=== PATIENT | female | born 1990 | race Caucasian/White ===

== ENCOUNTER 2017-04-15 20:59 | Emergency (ER) | payer MEDICAID, OTHER ==
[~2017-04-15] VITALS: Ht 165.1 cm; Wt 80.0 kg
[2017-04-16] MEDS ORDERED: ONDANSETRON 4MG ODT PO STA (01:30)
[2017-04-16] MEDS ORDERED: ACETAMINOPHEN 325MG TABLET PO STA (01:30)
[2017-04-16 01:51] LABS: CLARITY URINE CLEAR (CLEAR); COLOR URINE YELLOW (YELLOW); GLUCOSE URINE NEGATIVE (NEGATIVE); KETONES URINE NEGATIVE (NEGATIVE); LEUKOCYTE ESTERASE URINE NEGATIVE (NEGATIVE); NITRITE URINE NEGATIVE (NEGATIVE); OCCULT BLOOD URINE NEGATIVE (NEGATIVE); PH URINE 5.5 (4.5-8.0); PROTEIN URINE NEGATIVE (NEGATIVE)
[2017-04-16 01:58] LABS: BASOPHILS % 0.4 % (0.0-2.0); EOSINOPHILS % 1.2 % (0.0-5.0); HEMATOCRIT. 34.5 % (36.0-48.0); HEMOGLOBIN. 11.2 g/dL (12.0-16.0); LYMPHOCYTES % 43.3 % (20.0-50.0); MEAN CORPUSCULAR HEMOGLOBIN 25.7 pg (28.0-32.0); MEAN CORPUSCULAR VOLUME 79.5 fL (81.0-99.0); MEAN PLATELET VOLUME 9.8 fl (7.4-10.4); NEUTROPHILS % 48.1 % (40.0-76.0); PLATELET 190 x1000/uL (130-400); RED BLOOD CELL COUNT 4.34 mill/uL (4.2-5.4); RED CELL DISTRIBUTION WIDTH 14.8 % (11.6-14.6)
[2017-04-16 02:04] LABS: INR 1.1; PROTHROMBIN TIME 10.9 sec
[2017-04-16 02:05] VITALS: BP 128/61
[2017-04-16 02:10] LABS: *BARBITURATES SCREEN URINE NEGATIVE (NEGATIVE); *BENZODIAZEPINES SCREEN URINE NEGATIVE (NEGATIVE); *COCAINE SCREEN URINE NEGATIVE (NEGATIVE); CANNABINOID URINE SCREEN NEGATIVE (NEGATIVE); METHADONE URINE SCREEN NEGATIVE (NEGATIVE); OPIATES URINE SCREEN NEGATIVE (NEGATIVE); PHENCYCLIDINE URINE SCREEN NEGATIVE (NEGATIVE)
[2017-04-16 02:11] LABS: CARBON DIOXIDE 28 mEq/L (21-32); CHLORIDE 109 mEq/L (98-107)
[2017-04-16 02:30] LABS: *AMPHETAMINES SCREEN URINE NEGATIVE (NEGATIVE)
== END 2017-04-16 03:15 | disposition home or self-care (01) ==
LOC: ER 04-16 01:44
DX: R51 Headache (principal); R42 Dizziness and giddiness; H53.8 Other visual disturbances; R11.0 Nausea
CPT/HCPCS: 36415; 71010; 80053; 80305; 81003; 81025; 83690; 85025; 85610; 93005; 99285; Q0162

== ENCOUNTER 2017-08-06 10:57 | Emergency (ER) | payer OTHER ==
[2017-08-06] MEDS ORDERED: KETOROLAC 30MG/ML VIAL IM STA (11:52)
[2017-08-06] MEDS ORDERED: VISCOUS LIDOCAINE 2% 15 ML UDC PO STA (11:52)
[2017-08-06] MEDS ORDERED: DICYCLOMINE 10 MG/5 ML ORAL SYR PO STA (11:52)
[2017-08-06] MEDS ORDERED: MAGNESIUM/ALUMINUM HYDROXIDE/SIMETHICONE 30ML UDC PO STA (11:52)
[2017-08-06] MEDS ORDERED: ONDANSETRON 4MG ODT PO STA (11:52)
[2017-08-06 12:46] LABS: CARBON DIOXIDE 25 mEq/L (21-32); CHLORIDE 107 mEq/L (98-107)
[2017-08-06 12:53] LABS: BASOPHILS % 0.3 % (0.0-2.0); HEMOGLOBIN. 11.1 g/dL (12.0-16.0); LYMPHOCYTES % 27.1 % (20.0-50.0); MEAN CORPUSCULAR HEMOGLOBIN 25.8 pg (28.0-32.0); MEAN CORPUSCULAR VOLUME 79.2 fL (81.0-99.0); MEAN PLATELET VOLUME 10.1 fl (7.4-10.4); MONOCYTES % 6.6 % (2.0-8.0); PLATELET 180 x1000/uL (130-400); RED CELL DISTRIBUTION WIDTH 15.2 % (11.6-14.6)
[2017-08-06 13:30] VITALS: BP 122/65
[2017-08-06 13:32] LABS: GLUCOSE URINE NEGATIVE (NEGATIVE); KETONES URINE NEGATIVE (NEGATIVE); LEUKOCYTE ESTERASE URINE NEGATIVE (NEGATIVE); NITRITE URINE NEGATIVE (NEGATIVE); OCCULT BLOOD URINE NEGATIVE (NEGATIVE); PH URINE 6.5 (4.5-8.0); PROTEIN URINE NEGATIVE (NEGATIVE); SPECIFIC GRAVITY URINE 1.025 (1.005-1.030); UROBILINOGEN URINE 0.2 E.U./dL (0.2-1.0)
[2017-08-06 13:34] LABS: CLARITY URINE CLEAR (CLEAR); COLOR URINE YELLOW (YELLOW)
== END 2017-08-06 14:10 | disposition home or self-care (01) ==
LOC: ER 10:57
DX: D50.9 Iron deficiency anemia, unspecified (principal); R10.12 Left upper quadrant pain; R11.0 Nausea
CPT/HCPCS: 36415; 80053; 81003; 81025; 83690; 85025; 96372; 99284; J1885; Q0162

== ENCOUNTER 2017-08-06 22:34 | Emergency (ER) | payer OTHER ==
[~2017-08-06] VITALS: Ht 165.1 cm; Wt 78.0 kg
[2017-08-07] MEDS ORDERED: FAMOTIDINE 20MG/2ML VIAL IV STA (00:40)
[2017-08-07] MEDS ORDERED: MORPHINE SULFATE 4 MG/ML CPJ (NOT FOR IM USE) IV STA (00:40)
[2017-08-07] MEDS ORDERED: SODIUM CHLORIDE 0.9% 1,000 ML IV ONE (00:40)
[2017-08-07] MEDS ORDERED: ONDANSETRON HCL 4MG/2ML VIAL IV STA (00:40)
[2017-08-07 01:14] LABS: BASOPHILS % 0.4 % (0.0-2.0); EOSINOPHILS % 1.1 % (0.0-5.0); HEMATOCRIT. 35.1 % (36.0-48.0); HEMOGLOBIN. 11.6 g/dL (12.0-16.0); LYMPHOCYTES % 26.9 % (20.0-50.0); MEAN CORPUSCULAR HEMOGLOBIN 26.5 pg (28.0-32.0); MEAN CORPUSCULAR VOLUME 79.7 fL (81.0-99.0); MEAN PLATELET VOLUME 10.2 fl (7.4-10.4); NEUTROPHILS % 64.6 % (40.0-76.0); PLATELET 192 x1000/uL (130-400); RED CELL DISTRIBUTION WIDTH 15.1 % (11.6-14.6)
[2017-08-07] MEDS ORDERED: MORPHINE SULFATE 10 MG/ML CPJ IV NR (01:15)
[2017-08-07 01:22] LABS: HCG SCREEN NEGATIVE; PROTHROMBIN TIME 10.7 sec (9.4-11.6)
[2017-08-07 01:24] LABS: CHLORIDE 109 mEq/L (98-107)
[2017-08-07 01:34] LABS: CARBON DIOXIDE 27 mEq/L (21-32); ETHANOL BLOOD < 10 mg/dL
[2017-08-07 01:52] LABS: COLOR URINE YELLOW (YELLOW); GLUCOSE URINE NEGATIVE (NEGATIVE); KETONES URINE TRACE (NEGATIVE); LEUKOCYTE ESTERASE URINE 1+ (NEGATIVE); NITRITE URINE NEGATIVE (NEGATIVE); OCCULT BLOOD URINE NEGATIVE (NEGATIVE); PROTEIN URINE NEGATIVE (NEGATIVE); SPECIFIC GRAVITY URINE 1.031 (1.005-1.030)
[2017-08-07 02:01] LABS: *AMPHETAMINES SCREEN URINE NEGATIVE (NEGATIVE); *BARBITURATES SCREEN URINE NEGATIVE (NEGATIVE); *BENZODIAZEPINES SCREEN URINE NEGATIVE (NEGATIVE); *COCAINE SCREEN URINE NEGATIVE (NEGATIVE); CANNABINOID URINE SCREEN NEGATIVE (NEGATIVE); METHADONE URINE SCREEN NEGATIVE (NEGATIVE); OPIATES URINE SCREEN NEGATIVE (NEGATIVE); PHENCYCLIDINE URINE SCREEN NEGATIVE (NEGATIVE)
[2017-08-07 02:09] LABS: CLARITY URINE SL HAZY (CLEAR)
[2017-08-07] MEDS ORDERED: CEFTRIAXONE 1 G PREMIX 50 ML IV NR (02:45)
[2017-08-07] MEDS ORDERED: DICYCLOMINE HCL 10MG CAPSULE PO ONE (03:45)
[2017-08-07 04:18] VITALS: BP 115/70
== END 2017-08-07 04:15 | disposition home or self-care (01) ==
LOC: ER 23:58
DX: N39.0 Urinary tract infection, site not specified (principal)
CPT/HCPCS: 36415; 74176; 80053; 80305; 81001; 83605; 83690; 84703; 85025; 85610; 96361; 96365; 96375; 99285; G0482; J0696; J2270; J2405; J3490; J7030; Z7610

== ENCOUNTER 2018-02-07 09:51 | Observation (INO) | payer OTHER ==
[~2018-02-07] VITALS: Ht 165.1 cm; Wt 79.8 kg
[2018-02-07] MEDS ORDERED: PNV1TABL76 PO (10:07)
[2018-02-07] MEDS ORDERED: CHOL100046 PO (10:07)
[2018-02-07 11:07] LABS: CLARITY URINE CLOUDY (CLEAR); COLOR URINE YELLOW (YELLOW); KETONES URINE NEGATIVE (NEGATIVE); LEUKOCYTE ESTERASE URINE 1+ (NEGATIVE); NITRITE URINE NEGATIVE (NEGATIVE); OCCULT BLOOD URINE 2+ (NEGATIVE); PH URINE 6.5 (4.5-8.0); PROTEIN URINE NEGATIVE (NEGATIVE); SPECIFIC GRAVITY URINE 1.027 (1.005-1.030)
[2018-02-07] MEDS ORDERED: CEFAZOLIN 2,000 MG in DEXT 5% WATER 100 ML IV SCH (12:00)
[2018-02-07] MEDS ORDERED: LACTATED RINGERS 1,000 ML IV SCH (12:00)
== END 2018-02-07 14:55 | disposition home or self-care (01) ==
LOC: L&D 09:51
PROVIDERS: ADMIT Obstetrics & Gynecology; ATTEND Obstetrics & Gynecology
DX: O26.893 Other specified pregnancy related conditions, third trimester (principal); R10.30 Lower abdominal pain, unspecified; M54.5 Low back pain; O26.853 Spotting complicating pregnancy, third trimester; Z3A.29 29 weeks gestation of pregnancy
CPT/HCPCS: 76805; 76818; 81003; 96365; 99281; G0378; J0690; J7120; 96360; 96361; J7060

== ENCOUNTER 2018-03-02 10:43 | Observation (INO) | payer OTHER ==
[~2018-03-02 10:43] MED LIST: CHOL100046 PO; PNV1TABL76 PO
[2018-03-02 12:20] LABS: CLARITY URINE CLEAR (CLEAR); COLOR URINE YELLOW (YELLOW); KETONES URINE TRACE (NEGATIVE); LEUKOCYTE ESTERASE URINE NEGATIVE (NEGATIVE); NITRITE URINE NEGATIVE (NEGATIVE); OCCULT BLOOD URINE NEGATIVE (NEGATIVE); PH URINE 6.5 (4.5-8.0); PROTEIN URINE NEGATIVE (NEGATIVE); SPECIFIC GRAVITY URINE 1.026 (1.005-1.030)
== END 2018-03-02 13:00 | disposition home or self-care (01) ==
LOC: L&D 10:43
PROVIDERS: ADMIT Obstetrics & Gynecology; ATTEND Obstetrics & Gynecology
DX: O26.893 Other specified pregnancy related conditions, third trimester (principal); R10.30 Lower abdominal pain, unspecified; M54.5 Low back pain; N89.8 Other specified noninflammatory disorders of vagina; Z3A.33 33 weeks gestation of pregnancy
CPT/HCPCS: 81003; 99281; G0378

== ENCOUNTER 2018-11-11 19:42 | Emergency (ER) | payer OTHER ==
[~2018-11-11] VITALS: Ht 165.1 cm; Wt 78.0 kg
[2018-11-11 21:22] LABS: CLARITY URINE CLEAR (CLEAR); COLOR URINE YELLOW (YELLOW); KETONES URINE TRACE (NEGATIVE); LEUKOCYTE ESTERASE URINE NEGATIVE (NEGATIVE); NITRITE URINE NEGATIVE (NEGATIVE); OCCULT BLOOD URINE NEGATIVE (NEGATIVE); PH URINE 5.5 (4.5-8.0); PROTEIN URINE NEGATIVE (NEGATIVE); SPECIFIC GRAVITY URINE 1.039 (1.005-1.030)
[2018-11-12 01:41] LABS: BASOPHILS % 0.1 % (0.0-2.0); EOSINOPHILS % 0.9 % (0.0-5.0); HEMATOCRIT. 34.3 % (36.0-48.0); HEMOGLOBIN. 11.2 g/dL (12.0-16.0); LYMPHOCYTES % 30.1 % (20.0-50.0); MEAN CORPUSCULAR HEMOGLOBIN 25.7 pg (28.0-32.0); MEAN CORPUSCULAR VOLUME 78.8 fL (81.0-99.0); MEAN PLATELET VOLUME 10.3 fl (7.4-10.4); MONOCYTES % 7.4 % (2.0-8.0); NEUTROPHILS % 61.5 % (40.0-76.0); PLATELET 215 x1000/uL (130-400); RED BLOOD CELL COUNT 4.35 mill/uL (4.2-5.4); RED CELL DISTRIBUTION WIDTH 16.5 % (11.6-14.6)
[2018-11-12 01:45] LABS: CHLORIDE 104 mEq/L (98-107)
[2018-11-12 02:15] LABS: B-HCG QUANTITATIVE 101303 mIU/mL (<3)
[2018-11-12 06:11] VITALS: BP 98/64
== END 2018-11-12 06:17 | disposition home or self-care (01) ==
LOC: ER 19:42
DX: O26.891 Other specified pregnancy related conditions, first trimester (principal); R00.2 Palpitations; R20.2 Paresthesia of skin; Z3A.08 8 weeks gestation of pregnancy
CPT/HCPCS: 36415; 76830; 76856; 80053; 81003; 81025; 84484; 84702; 85025; 87081; 87210; 93005; 99284; Z7610

== ENCOUNTER 2019-12-20 11:17 | Emergency (ER) | payer OTHER ==
[~2019-12-20] VITALS: Ht 165.1 cm; Wt 78.0 kg
[2019-12-20] MEDS ORDERED: IBUPROFEN 600MG TABLET PO STA (12:10)
[2019-12-20] MEDS ORDERED: LORAZEPAM 0.5MG TABLET PO ONE ×2 (12:15→13:00)
[2019-12-20] MEDS ORDERED: AMOXICILLIN 500 MG CAPSULE PO ONE (12:15)
[2019-12-20 17:59] VITALS: BP 138/94
== END 2019-12-20 17:59 | disposition home or self-care (01) ==
LOC: ER 11:17
DX: R51 Headache (principal); K08.89 Other specified disorders of teeth and supporting structures
CPT/HCPCS: 93005; 99284

== ENCOUNTER 2021-10-07 10:52 | Emergency (ER) | payer OTHER ==
[~2021-10-07] VITALS: Ht 165.1 cm; Wt 79.0 kg
[2021-10-07] MEDS ORDERED: VISCOUS LIDOCAINE 2% 15 ML UDC PO STA (11:00)
[2021-10-07] MEDS ORDERED: FAMOTIDINE 20MG/2ML VIAL IV ONE (11:00)
[2021-10-07] MEDS ORDERED: MAGNESIUM/ALUMINUM HYDROXIDE/SIMETHICONE 30ML UDC PO STA (11:00)
[2021-10-07] MEDS ORDERED: LORAZEPAM 2MG/ML CPJ IV ONE (11:15)
[2021-10-07] MEDS ORDERED: SODIUM CHLORIDE 0.9% 1,000 ML IV ONE (11:30)
[2021-10-07 11:35] VITALS: BP 105/51
[2021-10-07 12:01] LABS: BASOPHILS % 0.8 % (0.0-2.0); EOSINOPHILS % 2.3 % (0.0-5.0); HEMATOCRIT. 30.4 % (36.0-48.0); HEMOGLOBIN. 9.5 g/dL (12.0-16.0); LYMPHOCYTES % 31.8 % (20.0-50.0); MEAN CORPUSCULAR HEMOGLOBIN 21.1 pg (28.0-32.0); MEAN CORPUSCULAR VOLUME 67.7 fL (81.0-99.0); MEAN PLATELET VOLUME 10.3 fl (7.4-10.4); MONOCYTES % 7.7 % (2.0-8.0); NEUTROPHILS % 57.4 % (40.0-76.0); PLATELET 272 x1000/uL (130-400); RED BLOOD CELL COUNT 4.49 mill/uL (4.2-5.4); RED CELL DISTRIBUTION WIDTH 19.8 % (11.6-14.6)
[2021-10-07 12:05] LABS: CHLORIDE 109 mEq/L (98-107)
[2021-10-07 12:32] LABS: HCG SCREEN NEGATIVE
[2021-10-07 12:47] LABS: PLATELET ESTIMATE NORMAL
[2021-10-07] MEDS ORDERED: MAG-55 MT (12:52)
[2021-10-07] MEDS ORDERED: FAMO-135 MT (12:52)
[2021-10-07] MEDS ORDERED: IBUP-2028 MT (12:52)
[2021-10-07 13:03] LABS: CLARITY URINE CLOUDY (CLEAR); COLOR URINE YELLOW (YELLOW); KETONES URINE TRACE (NEGATIVE); LEUKOCYTE ESTERASE URINE NEGATIVE (NEGATIVE); NITRITE URINE NEGATIVE (NEGATIVE); OCCULT BLOOD URINE NEGATIVE (NEGATIVE); PH URINE 5.5 (4.5-8.0); PROTEIN URINE NEGATIVE (NEGATIVE); SPECIFIC GRAVITY URINE 1.032 (1.005-1.030); UROBILINOGEN URINE 0.2 E.U./dL (0.2-1.0)
== END 2021-10-07 12:31 | disposition home or self-care (01) ==
LOC: ER 10:52
DX: K80.50 Calculus of bile duct without cholangitis or cholecystitis without obstruction (principal); F41.9 Anxiety disorder, unspecified; Z79.899 Other long term (current) drug therapy; E86.0 Dehydration
CPT/HCPCS: 36415; 76705; 80053; 81003; 81025; 83690; 84703; 85025; 96361; 96374; 99284; J3490; J7030

== ENCOUNTER 2021-12-14 12:56 | Emergency (ER) | payer OTHER ==
[~2021-12-14] VITALS: Ht 165.1 cm; Wt 68.0 kg
[~2021-12-14 12:56] MED LIST changes: +FAMO-135 MT; +IBUP-2028 MT; +MAG-55 MT
[2021-12-14] MEDS ORDERED: IBUPROFEN 800MG TABLET PO ONE (13:45)
[2021-12-14] MEDS ORDERED: IBUP-2030 MT (14:36)
[2021-12-14] MEDS ORDERED: CYCL10TA7 MT (14:36)
[2021-12-14 14:56] VITALS: BP 126/75
== END 2021-12-14 14:57 | disposition home or self-care (01) ==
LOC: ER 12:56
DX: S09.8XXA Other specified injuries of head, initial encounter (principal); S63.592A Other specified sprain of left wrist, initial encounter; S63.591A Other specified sprain of right wrist, initial encounter; V49.49XA Driver injured in collision with other motor vehicles in traffic accident, initial encounter; Y93.89 Activity, other specified; Y92.89 Other specified places as the place of occurrence of the external cause; Y99.8 Other external cause status; F41.9 Anxiety disorder, unspecified; Z79.899 Other long term (current) drug therapy
CPT/HCPCS: 70450; 70486; 73110; 99284; J7040; Z7610

== ENCOUNTER 2022-01-05 19:46 | Emergency (ER) | payer OTHER ==
[~2022-01-05] VITALS: Ht 165.1 cm; Wt 78.0 kg
[~2022-01-05 19:46] MED LIST changes: +CYCL10TA7 MT; +IBUP-2030 MT
[2022-01-05 21:29] LABS: BASOPHILS % 0.4 % (0.0-2.0); EOSINOPHILS % 1.5 % (0.0-5.0); HEMOGLOBIN. 8.9 g/dL (12.0-16.0); LYMPHOCYTES % 31.9 % (20.0-50.0); MEAN CORPUSCULAR HEMOGLOBIN 20.9 pg (28.0-32.0); MEAN CORPUSCULAR VOLUME 65.9 fL (81.0-99.0); MONOCYTES % 7.8 % (2.0-8.0); NEUTROPHILS % 58.4 % (40.0-76.0); PLATELET 284 x1000/uL (130-400); RED BLOOD CELL COUNT 4.24 mill/uL (4.2-5.4)
[2022-01-05 21:36] LABS: HCG SCREEN NEGATIVE
[2022-01-05 21:59] LABS: PLATELET ESTIMATE NORMAL
[2022-01-05 22:00] LABS: CHLORIDE 109 mEq/L (98-107)
[2022-01-05] MEDS ORDERED: THROAT LOZENGES-BENZOCAINE/MENTH/CETYLPYRD CL LOZENGES MM PRN (22:00)
[2022-01-05] MEDS ORDERED: IBUPROFEN 600MG TABLET PO ONE (22:00)
[2022-01-05 22:15] LABS: CLARITY URINE CLOUDY (CLEAR); COLOR URINE YELLOW (YELLOW); KETONES URINE NEGATIVE (NEGATIVE); LEUKOCYTE ESTERASE URINE 2+ (NEGATIVE); NITRITE URINE NEGATIVE (NEGATIVE); OCCULT BLOOD URINE 2+ (NEGATIVE); PH URINE 6.5 (4.5-8.0); PROTEIN URINE NEGATIVE (NEGATIVE); SPECIFIC GRAVITY URINE 1.015 (1.005-1.030); UROBILINOGEN URINE 0.2 E.U./dL (0.2-1.0)
[2022-01-05 22:18] VITALS: BP 129/72
[2022-01-05] MEDS ORDERED: AMOX250S70 MT (22:24)
[2022-01-05] MEDS ORDERED: AMOXICILLIN/POTASSIUM CLAVULANATE 500/125MG TAB PO ONE (22:30)
== END 2022-01-05 22:56 | disposition home or self-care (01) ==
LOC: ER 19:46
DX: K11.20 Sialoadenitis, unspecified (principal); N39.0 Urinary tract infection, site not specified; D64.9 Anemia, unspecified; R53.1 Weakness
CPT/HCPCS: 36415; 80053; 81003; 81025; 84703; 85025; 99283

== ENCOUNTER 2022-02-20 08:54 | Emergency (ER) | payer MEDICAID, OTHER ==
[~2022-02-20] VITALS: Ht 165.1 cm; Wt 82.0 kg
[~2022-02-20 08:54] MED LIST changes: +AMOX250S70 MT
[2022-02-20 08:58] VITALS: BP 117/73
[2022-02-20 09:55] LABS: BASOPHILS % 0.3 % (0.0-2.0); EOSINOPHILS % 0.4 % (0.0-5.0); HEMATOCRIT. 28.9 % (36.0-48.0); HEMOGLOBIN. 9.1 g/dL (12.0-16.0); LYMPHOCYTES % 13.8 % (20.0-50.0); MEAN CORPUSCULAR HEMOGLOBIN 20.4 pg (28.0-32.0); MEAN CORPUSCULAR VOLUME 64.6 fL (81.0-99.0); MEAN PLATELET VOLUME 8.9 fl (7.4-10.4); MONOCYTES % 5.5 % (2.0-8.0); PLATELET 266 x1000/uL (130-400); RED BLOOD CELL COUNT 4.47 mill/uL (4.2-5.4); RED CELL DISTRIBUTION WIDTH 17.2 % (11.6-14.6)
[2022-02-20 10:00] LABS: HCG SCREEN NEGATIVE
[2022-02-20 10:01] LABS: CHLORIDE 106 mEq/L (98-107)
[2022-02-20 10:26] LABS: PLATELET ESTIMATE NORMAL
[2022-02-20] MEDS ORDERED: KETOROLAC 60MG/2ML VIAL IM ONE (10:45)
[2022-02-20] MEDS ORDERED: ACETAMINOPHEN 325MG TABLET PO ONE (10:45)
[2022-02-20] MEDS ORDERED: ONDANSETRON 4MG ODT PO ONE (12:00)
== END 2022-02-20 13:17 | disposition home or self-care (01) ==
LOC: ER 08:54
DX: B34.9 Viral infection, unspecified (principal); Z20.822 Contact with and (suspected) exposure to COVID-19; Z79.899 Other long term (current) drug therapy
CPT/HCPCS: 36415; 71045; 80053; 83880; 84484; 84703; 85025; 87426; 87804; 93005; 96372; 99285; J1885; Q0162

== ENCOUNTER 2022-05-20 14:52 | Emergency (ER) | payer MEDICAID, OTHER ==
[~2022-05-20] VITALS: Ht 165.1 cm; Wt 83.0 kg
[~2022-05-20 14:52] MED LIST changes: +CYCL10TA21 MT; -CYCL10TA7 MT
[2022-05-20 14:53] VITALS: BP 112/80
[2022-05-20 15:22] LABS: CLARITY URINE CLEAR (CLEAR); COLOR URINE YELLOW (YELLOW); KETONES URINE NEGATIVE (NEGATIVE); LEUKOCYTE ESTERASE URINE 3+ (NEGATIVE); NITRITE URINE NEGATIVE (NEGATIVE); OCCULT BLOOD URINE NEGATIVE (NEGATIVE); PH URINE 6.5 (4.5-8.0); PROTEIN URINE NEGATIVE (NEGATIVE); SPECIFIC GRAVITY URINE 1.011 (1.005-1.030); UROBILINOGEN URINE 0.2 E.U./dL (0.2-1.0)
[2022-05-20] MEDS ORDERED: ACETAMINOPHEN 325MG TABLET PO STA (16:48)
[2022-05-20] MEDS ORDERED: ONDANSETRON 4MG ODT PO STA (16:48)
[2022-05-20 17:13] LABS: BASOPHILS % 0.4 % (0.0-2.0); EOSINOPHILS % 0.9 % (0.0-5.0); HEMOGLOBIN. 9.6 g/dL (12.0-16.0); LYMPHOCYTES % 26.8 % (20.0-50.0); MEAN CORPUSCULAR HEMOGLOBIN 21.1 pg (28.0-32.0); MEAN CORPUSCULAR VOLUME 68.1 fL (81.0-99.0); MEAN PLATELET VOLUME 9.9 fl (7.4-10.4); MONOCYTES % 7.2 % (2.0-8.0); NEUTROPHILS % 64.7 % (40.0-76.0); PLATELET 252 x1000/uL (130-400); RED BLOOD CELL COUNT 4.54 mill/uL (4.2-5.4); RED CELL DISTRIBUTION WIDTH 19.6 % (11.6-14.6)
[2022-05-20 17:30] LABS: CHLORIDE 108 mEq/L (98-107)
[2022-05-20 17:36] LABS: ETHANOL BLOOD < 10 mg/dL; HCG SCREEN NEGATIVE; PROTHROMBIN TIME 10.7 sec (9.6-11.0)
[2022-05-20 18:09] LABS: PLATELET ESTIMATE NORMAL
[2022-05-20] MEDS ORDERED: ACET-2708 MT (19:11)
[2022-05-20] MEDS ORDERED: ONDA4TAB50 MT (19:11)
[2022-05-20] MEDS ORDERED: CEPH500C2 MT (19:11)
== END 2022-05-20 18:38 | disposition home or self-care (01) ==
LOC: ER 14:52
DX: N39.0 Urinary tract infection, site not specified (principal); R10.9 Unspecified abdominal pain; D64.9 Anemia, unspecified
CPT/HCPCS: 36415; 76830; 76856; 80053; 80320; 81003; 81025; 83690; 84703; 85025; 85610; 99284; Q0162; G0480

== ENCOUNTER 2022-09-17 15:02 | Emergency (ER) | payer MEDICAID, OTHER ==
[~2022-09-17] VITALS: Ht 172.7 cm; Wt 68.0 kg
[~2022-09-17 15:02] MED LIST changes: +ACET-2708 MT; +CEPH500C2 MT; +ONDA4TAB50 MT
[2022-09-17 15:04] VITALS: BP 102/50
[2022-09-17] MEDS ORDERED: LORAZEPAM 1MG TABLET PO ONE (15:15)
[2022-09-17 15:47] LABS: BASOPHILS % 0.3 % (0.0-2.0); HEMATOCRIT. 34.6 % (36.0-48.0); HEMOGLOBIN. 10.9 g/dL (12.0-16.0); LYMPHOCYTES % 35.4 % (20.0-50.0); MEAN CORPUSCULAR HEMOGLOBIN 21.7 pg (28.0-32.0); MEAN CORPUSCULAR VOLUME 68.8 fL (81.0-99.0); MEAN PLATELET VOLUME 10.2 fl (7.4-10.4); MONOCYTES % 7.2 % (2.0-8.0); NEUTROPHILS % 56.1 % (40.0-76.0); PLATELET 270 x1000/uL (130-400); RED BLOOD CELL COUNT 5.03 mill/uL (4.2-5.4); RED CELL DISTRIBUTION WIDTH 19.3 % (11.6-14.6)
[2022-09-17 16:12] LABS: CHLORIDE 107 mEq/L (98-107)
[2022-09-17 16:13] LABS: PLATELET ESTIMATE NORMAL
[2022-09-17] MEDS ORDERED: POTASSIUM CHLORIDE 20MEQ TABLET SR PO NR (16:45)
== END 2022-09-17 19:23 | disposition home or self-care (01) ==
LOC: ER 15:18
DX: F41.9 Anxiety disorder, unspecified (principal); F41.0 Panic disorder [episodic paroxysmal anxiety]; E87.6 Hypokalemia; D64.9 Anemia, unspecified
CPT/HCPCS: 36415; 71045; 80053; 83880; 84484; 85025; 93005; 99285

== ENCOUNTER 2022-12-22 20:55 | Emergency (ER) | payer MEDICAID, OTHER ==
[~2022-12-22] VITALS: Ht 165.1 cm; Wt 79.0 kg
[2022-12-22 22:24] LABS: CLARITY URINE CLEAR (CLEAR); COLOR URINE YELLOW (YELLOW); KETONES URINE NEGATIVE (NEGATIVE); LEUKOCYTE ESTERASE URINE NEGATIVE (NEGATIVE); NITRITE URINE NEGATIVE (NEGATIVE); OCCULT BLOOD URINE NEGATIVE (NEGATIVE); PH URINE 8.5 (4.5-8.0); PROTEIN URINE TRACE (NEGATIVE); SPECIFIC GRAVITY URINE 1.025 (1.005-1.030)
[2022-12-22 23:53] LABS: BASOPHILS % 0.3 % (0.0-2.0); EOSINOPHILS % 1.7 % (0.0-5.0); HEMATOCRIT. 31.8 % (36.0-48.0); LYMPHOCYTES % 35.4 % (20.0-50.0); MEAN CORPUSCULAR HEMOGLOBIN 21.9 pg (28.0-32.0); MEAN CORPUSCULAR VOLUME 69.6 fL (81.0-99.0); MEAN PLATELET VOLUME 9.7 fl (7.4-10.4); MONOCYTES % 7.1 % (2.0-8.0); NEUTROPHILS % 55.5 % (40.0-76.0); PLATELET 260 x1000/uL (130-400); RED BLOOD CELL COUNT 4.56 mill/uL (4.2-5.4); RED CELL DISTRIBUTION WIDTH 18.7 % (11.6-14.6)
[2022-12-22 23:56] LABS: PROTHROMBIN TIME 10.3 sec (9.6-11.0)
[2022-12-23 00:01] LABS: HCG SCREEN NEGATIVE
[2022-12-23 00:27] LABS: PLATELET ESTIMATE NORMAL
[2022-12-23 01:15] LABS: CHLORIDE 109 mEq/L (98-107); ETHANOL BLOOD < 10 mg/dL
[2022-12-23] MEDS ORDERED: SODIUM CHLORIDE 0.9% 1,000 ML IV ONE (04:45)
[2022-12-23] MEDS ORDERED: KETOROLAC 15MG/ML VIAL IV ONE (04:45)
[2022-12-23 05:04] VITALS: BP 132/65
[2022-12-23] MEDS ORDERED: OXYC-100 PO (05:57)
[2022-12-23] MEDS ORDERED: ONDA4TAB50 PO (05:59)
[2022-12-23 06:01] LABS: *AMPHETAMINES SCREEN URINE NEGATIVE (NEGATIVE); *BARBITURATES SCREEN URINE NEGATIVE (NEGATIVE); *BENZODIAZEPINES SCREEN URINE NEGATIVE (NEGATIVE); *COCAINE SCREEN URINE NEGATIVE (NEGATIVE); CANNABINOID URINE SCREEN NEGATIVE (NEGATIVE); METHADONE URINE SCREEN NEGATIVE (NEGATIVE); OPIATES URINE SCREEN NEGATIVE (NEGATIVE); PHENCYCLIDINE URINE SCREEN NEGATIVE (NEGATIVE)
== END 2022-12-23 06:28 | disposition home or self-care (01) ==
LOC: ER 20:55
DX: N20.0 Calculus of kidney (principal); D64.9 Anemia, unspecified
CPT/HCPCS: 36415; 74176; 80053; 80305; 80320; 81003; 83690; 84703; 85025; 85610; 96361; 96374; 99283; J1885; J7030; Z7610; G0480

== ENCOUNTER 2023-08-04 13:03 | Emergency (ER) | payer MEDICAID, OTHER ==
[~2023-08-04] VITALS: Ht 165.1 cm; Wt 79.4 kg
[~2023-08-04 13:03] MED LIST changes: +ONDA4TAB50 PO; +OXYC-100 PO
[2023-08-04 13:21] VITALS: BP 129/72; PULSE 70; RESP 16; TEMP 98.5; O2SAT 100
[2023-08-04 13:58] LABS: BASOPHILS % 0.4 % (0.0-2.0); DIFFERENTIAL COMMENT 0; EOSINOPHILS % 0.8 % (0.0-5.0); HEMATOCRIT. 33.8 % (36.0-48.0); HEMOGLOBIN. 10.9 g/dL (12.0-16.0); LYMPHOCYTES % 24.9 % (20.0-50.0); MEAN CORPUSCULAR HEMOGLOBIN 24.5 pg (28.0-32.0); MEAN CORPUSCULAR HGB CONC 32.4 g/dL (31.0-37.0); MEAN CORPUSCULAR VOLUME 75.6 fL (81.0-99.0); MEAN PLATELET VOLUME 9.3 fl (7.4-10.4); MONOCYTES % 6.7 % (2.0-8.0); NEUTROPHILS % 67.2 % (40.0-76.0); PLATELET 213 x1000/uL (130-400); RED BLOOD CELL COUNT 4.47 mill/uL (4.2-5.4); RED CELL DISTRIBUTION WIDTH 17.2 % (11.6-14.6); WHITE BLOOD COUNT 7.3 x1000/uL (4.5-11.0)
[2023-08-04 14:11] LABS: CHLORIDE 104 mEq/L (98-107); INDEX HEMOLYSI 1 (1-3); INDEX ICTERIC 1 (1-4); INDEX LIPEMIC 1 (1-3); POTASSIUM 3.7 mEq/L (3.5-5.1); SODIUM 135 mEq/L (136-145)
[2023-08-04 14:36] LABS: ALANINE AMINOTRANSFERASE 17 IU/L (13-61); ALBUMIN 3.9 g/dL (3.4-5.0); ASPARTATE AMINOTRANSFERASE 14 IU/L (15-37); B-HCG QUANTITATIVE 49138 mIU/mL (<3); BILIRUBIN TOTAL 0.6 mg/dL (0.1-1.0); CALCIUM 9.1 mg/dL (8.5-10.1); CARBON DIOXIDE 26 mEq/L (21-32); CREATININE 0.7 mg/dL (0.6-1.3); GLUCOSE 121 mg/dL (70-105); PROTEIN TOTAL 7.7 g/dL (6.0-8.3); UREA NITROGEN BLOOD 11 mg/dL (7-21)
[2023-08-04] MEDS ORDERED: ACETAMINOPHEN 325MG TABLET PO PRN (15:00)
[2023-08-04] MEDS ORDERED: ONDANSETRON 4MG ODT PO ONE (15:00)
[2023-08-04 15:34] LABS: CLARITY URINE CLEAR (CLEAR); COLOR URINE YELLOW (YELLOW); GLUCOSE URINE NEGATIVE (NEGATIVE); KETONES URINE NEGATIVE (NEGATIVE); LEUKOCYTE ESTERASE URINE 1+ (NEGATIVE); NITRITE URINE NEGATIVE (NEGATIVE); OCCULT BLOOD URINE NEGATIVE (NEGATIVE); PROTEIN URINE NEGATIVE (NEGATIVE); UROBILINOGEN URINE 0.2 E.U./dL (0.2-1.0)
[2023-08-04 15:38] LABS: RBC URINE 0-2 /hpf (0-2); SQUAMOUS EPITHELIAL CELL URINE NONE SEEN /lpf (RARE/1+); YEAST URINE NONE SEEN
[2023-08-04 16:33] LABS: BACTERIA URINE NONE SEEN
[2023-08-04] MEDS ORDERED: ONDANSETRON 4MG ODT PO NR (16:50)
[2023-08-04] MEDS ORDERED: ONDA4TAB11 PO (18:27)
[2023-08-04] MEDS ORDERED: TOPUD MT (18:27)
== END 2023-08-04 18:49 | disposition home or self-care (01) ==
LOC: ER 13:03
DX: O21.0 Mild hyperemesis gravidarum (principal); Z3A.01 Less than 8 weeks gestation of pregnancy
CPT/HCPCS: 99284; 76801; 80053; 81003; 81025; 84702; 83690; 85025; 36415; 76817; Q0162